=== PATIENT | male | born 1975 | race Caucasian/White ===

== ENCOUNTER → 2017-07-13 | Outpatient (CLI) | payer BC ==
[~2017-07-13] MED LIST: CIPR-255 PO; IBUP-1428 PO
--- NOTE | 2017-07-13 16:29 | DIAGNOSTIC IMAGING REPORT ---
LEFT HIP 2 VIEWS HISTORY: LEFT HIP PAIN COMPARISON: None. FINDINGS: There is no fracture or dislocation. Soft tissues are unremarkable. No radiopaque foreign bodies. IMPRESSION: No fracture or dislocation within the left hip. Electronically signed by: Piotr De La Cruz M.D. 07/13/2017 4:27 PM Dictated Date/Time: 07/13/2017 4:26 PM
== END | disposition home or self-care (01) ==
LOC: C.RAD1850 15:52
PROVIDERS: ATTEND Family Medicine
DX: M25.552 Pain in left hip (principal)